=== PATIENT | male | born 1970 | race Caucasian/White ===

== ENCOUNTER 2020-10-06 21:01 | Emergency (ER) | payer OTHER ==
[2020-10-06 21:15] VITALS: BP 132/88; PULSE 75; TEMP 97.7; BMI 22.8
[2020-10-06] MEDS ORDERED: METHOCARBAMOL 500 MG TABLET PO ONE (21:35)
[2020-10-06] MEDS ORDERED: DIPHTH,PERTUSS(ACELL),TET 0.5 ML DISP.SYRIN IM ONE ×2 (21:36→21:43)
[2020-10-06] MEDS ORDERED: METHOCARBAMOL 500 MG TABLET ONE (21:42)
== END 2020-10-06 23:27 | disposition home or self-care (01) ==
LOC: JER 21:01
PROC: 3E0234Z Introduction of Serum, Toxoid and Vaccine into Muscle, Percutaneous Approach (ICD-10-PCS; principal; 2020-10-06)
DX: S16.1XXA Strain of muscle, fascia and tendon at neck level, initial encounter (principal); S46.819A Strain of other muscles, fascia and tendons at shoulder and upper arm level, unspecified arm, initial encounter
CPT/HCPCS: 70450-TC; 72125-TC; 90715; 93005; 93010; 99285-25

== ENCOUNTER 2023-05-03 18:55 | Emergency (ER) | payer OTHER ==
[2023-05-03 19:27] VITALS: BP 152/99; PULSE 87; RESP 18; TEMP 98; BMI 23.9
[2023-05-03] MEDS ORDERED: LIDOCAINE 1%/EPI 1:100000 (20 ML MULTI DOSE VIAL) INF ONE (20:47)
[2023-05-03] MEDS ORDERED: LIDOCAINE 1%/EPI 1:100000 (50 ML MULTI DOSE VIAL) ONE (20:52)
[2023-05-03] MEDS ORDERED: CEPHALEXIN MONOHYDRATE 500 MG CAPSULE (UD) PO ONE (21:33)
[2023-05-03] MEDS ORDERED: CEPHALEXIN MONOHYDRATE 500 MG CAPSULE (UD) ONE (21:44)
== END 2023-05-03 21:48 | disposition home or self-care (01) ==
LOC: JER 18:55
PROC: 0HQBXZZ Repair Right Upper Arm Skin, External Approach (ICD-10-PCS; principal; 2023-05-03)
DX: S41.111A Laceration without foreign body of right upper arm, initial encounter (principal); W00.0XXA Fall on same level due to ice and snow, initial encounter; W26.8XXA Contact with other sharp object(s), not elsewhere classified, initial encounter
CPT/HCPCS: 99283-25

== ENCOUNTER 2023-05-25 22:22 | Emergency (ER) | payer OTHER ==
[2023-05-25 22:31] VITALS: BP 140/94; PULSE 87; RESP 20; TEMP 97.4; BMI 24.3
[2023-05-26] MEDS ORDERED: MAG HYDROX/AL HYDROX/SIMETH 30 ML UNIT-DOSE CUP ONE (00:34)
[2023-05-26] MEDS ORDERED: ACETAMINOPHEN INJECTION 100 ML IVPB ONE (00:34)
[2023-05-26] MEDS ORDERED: FAMOTIDINE 20 MG/50 ML IVPB 20 MG/50 ML MG IVPB ONE (00:34)
[2023-05-26 00:38] LABS: EOS % 5.9 % (0-4.5); HEMATOCRIT 40.4 % (35.4-49); HEMOGLOBIN 13.9 GM/dL (11.7-16.9); LYMPH % 26.5 % (8-40); MCH 32.3 pg (25.7-33.7); MCHC 34.4 g/dl (32.0-35.9); MEAN CELL VOLUME 94.1 fl (80-96); MEAN PLT VOLUME 9.3 fl (7.5-11.1); MONO % 11.6 % (3.8-10.2); PLATELET COUNT 231 10^3/uL (134-434); RBC 4.29 M/mm3 (4.00-5.60); RDW 13.4 % (11.9-15.9); WHITE BLOOD COUNT 7.5 K/mm3 (4.0-10.0)
[2023-05-26 00:46] LABS: INR 0.96 (0.83-1.09); PROTHROMBIN TIME (PATIENT) 11.1 SEC (9.7-13.0)
[2023-05-26 00:49] LABS: ACTIVATED PTT 25.7 SECONDS (25.2-36.5)
[2023-05-26 00:54] LABS: POTASSIUM 3.4 mmol/L (3.5-5.1)
[2023-05-26 00:56] LABS: CALCIUM 9.1 mg/dL (8.5-10.1)
[2023-05-26 00:57] LABS: ALBUMIN 3.4 g/dl (3.4-5.0); BLOOD UREA NITROGEN 8.5 mg/dL (7-18)
[2023-05-26 00:59] LABS: CREATININE 0.9 mg/dL (0.55-1.3)
[2023-05-26 01:01] LABS: BILIRUBIN,TOTAL 0.3 mg/dL (0.2-1); TOT PROT 7.2 g/dl (6.4-8.2)
[2023-05-26] MEDS: MAG HYDROX/AL HYDROX/SIMETH 30 ML UNIT-DOSE CUP PO ONE (01:12)
[2023-05-26] MEDS: SODIUM CHLORIDE 0.9% 500 ML INFUS.BAG IV ONE (01:12)
[2023-05-26] MEDS: ACETAMINOPHEN 1000 MG/100 ML BAG IVPB ONE (01:13)
[2023-05-26] MEDS: FAMOTIDINE 20 MG/50 ML IVPB 20 MG/50 ML MG IVPB ONE (01:15)
[2023-05-26] MEDS ORDERED: POTASSIUM CHLORIDE TABS 20 MEQ TABLET.ER (FP) PO ONE (01:22)
[2023-05-26] MEDS: POTASSIUM CHLORIDE ORAL LIQUID 20 MEQ/15 ML PO ONE (01:26)
[2023-05-26] MEDS ORDERED: MAGNESIUM CITRATE 300 ML BOTTLE ONE (01:38)
[2023-05-26] MEDS: MAGNESIUM CITRATE 300 ML BOTTLE PO ONE (01:41)
== END 2023-05-26 02:21 | disposition home or self-care (01) ==
LOC: JER 22:22
PROC: 3E033GC Introduction of Other Therapeutic Substance into Peripheral Vein, Percutaneous Approach (ICD-10-PCS; principal; 2023-05-25)
PROC: 3E033GC Introduction of Other Therapeutic Substance into Peripheral Vein, Percutaneous Approach (ICD-10-PCS; 2023-05-25)
DX: R10.11 Right upper quadrant pain (principal); K76.0 Fatty (change of) liver, not elsewhere classified
CPT/HCPCS: 36415; 71046-TC-FY; 76705-TC; 80053; 80307; 83690; 84484; 85025; 85610; 85730; 93005; 93010; 99285-25; J0131

== ENCOUNTER 2023-06-05 18:57 | Inpatient (IN) | payer OTHER ==
[2023-06-05] MEDS ORDERED: FOLIC ACID 1 MG TABLET (FP) PO ONE (19:18)
[2023-06-05 19:45] LABS: BASO % 1.2 % (0-2.0); EOS % 2.7 % (0-4.5); HEMATOCRIT 19.8 % (35.4-49); LYMPH % 18.4 % (8-40); MCHC 34.1 g/dl (32.0-35.9); MEAN CELL VOLUME 96.8 fl (80-96); MEAN PLT VOLUME 10.7 fl (7.5-11.1); MONO % 7.5 % (3.8-10.2); NEUT % 70.2 % (42.8-82.8); PLATELET COUNT 169 10^3/uL (134-434); RBC 2.04 M/mm3 (4.00-5.60)
[2023-06-05 19:50] LABS: HEMOGLOBIN 6.7 GM/dL (11.7-16.9)
[2023-06-05] MEDS ORDERED: PANTOPRAZOLE SODIUM 40 MG VIAL ONE ×2 (19:52→20:54)
[2023-06-05] MEDS ORDERED: THIAMINE HCL 200 MG/2 ML VIAL ONE (19:52)
[2023-06-05] MEDS: LACTATED RINGERS SOLUTION 1000 ML INFUS.BAG IV ONE (20:01)
[2023-06-05] MEDS: PANTOPRAZOLE SODIUM 40 MG VIAL IVPUSH ONE (20:01)
[2023-06-05] MEDS: THIAMINE HCL 200 MG/2 ML VIAL IVPB ONE (20:01)
[2023-06-05 20:13] LABS: POTASSIUM 3.9 mmol/L (3.5-5.1)
[2023-06-05 20:16] LABS: ALBUMIN 3.1 g/dl (3.4-5.0); CALCIUM 8.1 mg/dL (8.5-10.1)
[2023-06-05 20:17] LABS: BLOOD UREA NITROGEN 23.6 mg/dL (7-18)
[2023-06-05 20:19] LABS: PHOSPHOROUS 2.2 mg/dL (2.5-4.9)
[2023-06-05 20:20] LABS: CREATININE 0.9 mg/dL (0.55-1.3)
[2023-06-05 20:21] LABS: BILIRUBIN,TOTAL 0.4 mg/dL (0.2-1); INR 1.02 (0.83-1.09); PROTHROMBIN TIME (PATIENT) 11.8 SEC (9.7-13.0); TOT PROT 5.8 g/dl (6.4-8.2)
[2023-06-05 20:23] LABS: ACTIVATED PTT 22.8 SECONDS (25.2-36.5)
[2023-06-05] MEDS ORDERED: POTASSIUM PHOSPHATE 30 MM in DEXTROSE 5%-WATER - 500 ML IVPB ONE (20:24)
[2023-06-05 20:54] LABS: LACTIC ACID 2.5 mmol/L (0.4-2.0)
[2023-06-05] MEDS ORDERED: ONDANSETRON 4 MG/2 ML VIAL ONE (20:54)
[2023-06-05 20:58] LABS: IRON SERUM 79 ug/dL (50-175)
[2023-06-05] MEDS: ONDANSETRON 4 MG/2 ML VIAL IVPUSH ONE (20:58)
[2023-06-05 20:59] LABS: TOTAL IRON BINDING CAPACITY 337 ug/dL (250-450)
[2023-06-05] MEDS: PANTOPRAZOLE SODIUM 80 MG in SODIUM CHLORIDE 100 ML IVPB SCH (21:12)
[2023-06-05] MEDS ORDERED: OCTREOTIDE ACETATE 100 MCG/1 ML ONE (21:14)
[2023-06-05 21:29] LABS: HEMATOCRIT 15.4 % (35.4-49); LYMPH % 23.7 % (8-40); MCH 32.7 pg (25.7-33.7); MCHC 33.5 g/dl (32.0-35.9); MEAN CELL VOLUME 97.6 fl (80-96); MEAN PLT VOLUME 9.9 fl (7.5-11.1); MONO % 8.1 % (3.8-10.2); NEUT % 65.2 % (42.8-82.8); PLATELET COUNT 144 10^3/uL (134-434); RBC 1.58 M/mm3 (4.00-5.60); RDW 13.2 % (11.9-15.9); WHITE BLOOD COUNT 7.9 K/mm3 (4.0-10.0)
[2023-06-05] MEDS: OCTREOTIDE ACETATE 50 MCG/1 ML - 1 ML VIAL IVPUSH ONE (21:31)
[2023-06-05 21:35] LABS: HEMOGLOBIN 5.2 GM/dL (11.7-16.9)
[2023-06-05] MEDS ORDERED: THIAMINE HCL 200 MG/2 ML VIAL IVPB SCH (21:45)
[2023-06-05] MEDS ORDERED: CEFTRIAXONE 1 GM in DEXTROSE 5%-WATER - 50 ML IVPB SCH (22:07)
[2023-06-05 22:14] LABS: POTASSIUM 3.7 mmol/L (3.5-5.1)
[2023-06-05 22:15] LABS: CALCIUM 7.6 mg/dL (8.5-10.1)
[2023-06-05 22:16] LABS: BLOOD UREA NITROGEN 23.6 mg/dL (7-18); MAGNESIUM 1.6 mg/dL (1.8-2.4)
[2023-06-05] MEDS: OCTREOTIDE ACETATE 200 MCG, OCTREOTIDE ACETATE 1,000 MCG in DEXTROSE 5%-WATER - 496 ML IVPB SCH (22:17)
[2023-06-05] MEDS: FOLIC ACID 5 MG/1 ML SQ ONE (22:17)
[2023-06-05 22:19] LABS: CREATININE 0.8 mg/dL (0.55-1.3)
[2023-06-05] MEDS: LACTATED RINGERS SOLUTION 1,000 ML/1,000 ML INFUS.BAG IV SCH (23:28)
[2023-06-05] MEDS: MAGNESIUM SULFATE IN WATER 2 GM/50 ML IVPB IVPB ONE (23:29)
[2023-06-06 00:19] LABS: BASO % 0.6 % (0-2.0); HEMATOCRIT 19.5 % (35.4-49); LYMPH % 29.7 % (8-40); MCH 31.3 pg (25.7-33.7); MCHC 33.3 g/dl (32.0-35.9); MEAN CELL VOLUME 93.9 fl (80-96); MEAN PLT VOLUME 10.1 fl (7.5-11.1); MONO % 7.4 % (3.8-10.2); NEUT % 60.3 % (42.8-82.8); PLATELET COUNT 120 10^3/uL (134-434); RBC 2.07 M/mm3 (4.00-5.60); RDW 14.4 % (11.9-15.9); WHITE BLOOD COUNT 11.6 K/mm3 (4.0-10.0)
[2023-06-06 00:23] LABS: HEMOGLOBIN 6.5 GM/dL (11.7-16.9)
[2023-06-06] MEDS: DEXMEDETOMIDINE PREMIX 400 MCG/100 ML BAG IVPB SCH (00:57)
[2023-06-06 01:24] LABS: LACTIC ACID 4.9 mmol/L (0.4-2.0)
[2023-06-06 02:11] LABS: URINE BARBITURATES NEGATIVE (NEGATIVE)
[2023-06-06 02:12] LABS: METHADONE, UR NEGATIVE (NEGATIVE); OPIATES, URI NEGATIVE (NEGATIVE); PHENCYCLIDINE,URINE NEGATIVE (NEGATIVE); URINE AMPHETAMINES NEGATIVE (NEGATIVE); URINE BENZODIAZEPINES NEGATIVE (NEGATIVE)
[2023-06-06] MEDS: THIAMINE HCL 200 MG/2 ML VIAL IVPB SCH (02:22)
[2023-06-06 02:36] LABS: COCAINE, UR POSITIVE (NEGATIVE)
[2023-06-06 06:11] LABS: HEMOGLOBIN 10.3 GM/dL (11.7-16.9); MCHC 34.3 g/dl (32.0-35.9); MEAN CELL VOLUME 90.4 fl (80-96); MEAN PLT VOLUME 11.6 fl (7.5-11.1); PLATELET COUNT 81 10^3/uL (134-434); RBC 3.32 M/mm3 (4.00-5.60); WHITE BLOOD COUNT 11.2 K/mm3 (4.0-10.0)
[2023-06-06 06:37] LABS: BASO % 0.5 % (0-2.0); EOS % 1.4 % (0-4.5); HEMATOCRIT 28.8 % (35.4-49); HEMOGLOBIN 10.1 GM/dL (11.7-16.9); LYMPH % 21.3 % (8-40); MCH 31.6 pg (25.7-33.7); MCHC 35.3 g/dl (32.0-35.9); MEAN CELL VOLUME 89.5 fl (80-96); MEAN PLT VOLUME 10.3 fl (7.5-11.1); MONO % 10.1 % (3.8-10.2); NEUT % 66.7 % (42.8-82.8); PLATELET COUNT 82 10^3/uL (134-434); RBC 3.21 M/mm3 (4.00-5.60); RDW 13.8 % (11.9-15.9)
[2023-06-06 06:53] LABS: INR 1.17 (0.83-1.09); PROTHROMBIN TIME (PATIENT) 13.5 SEC (9.7-13.0)
[2023-06-06 06:56] LABS: ACTIVATED PTT 23.1 SECONDS (25.2-36.5)
[2023-06-06] MEDS: INSULIN REGULAR HUMAN 100 UNITS/ML *VIAL IVPUSH ONE (07:00)
[2023-06-06] MEDS: CALCIUM GLUCONATE 10% - 1,000 MG/10 ML VIAL IVPB ONE (07:00)
[2023-06-06] MEDS: DEXTROSE 50%-WATER - 25 GM/50 ML VIAL IVPUSH ONE (07:00)
[2023-06-06 07:02] LABS: CHLORIDE 112 mmol/L (98-107); POTASSIUM 5.7 mmol/L (3.5-5.1); SODIUM 140 mmol/L (136-145)
[2023-06-06 07:08] LABS: ANION GAP 1 mmol/L (4-13); BLOOD UREA NITROGEN 24.3 mg/dL (7-18); CO2 27 mmol/L (21-32); GLUCOSE,RANDOM 138 mg/dL (74-106); MAGNESIUM 2.5 mg/dL (1.8-2.4)
[2023-06-06 07:11] LABS: CREATININE 0.9 mg/dL (0.55-1.3); PHOSPHOROUS 2.4 mg/dL (2.5-4.9); SGOT/AST 19 U/L (15-37); SGPT/ALT 22 U/L (13-61)
[2023-06-06] MEDS ORDERED: MIDAZOLAM HCL 2 MG/2 ML SINGLE DOSE VIAL ONE (07:12)
[2023-06-06 07:13] LABS: BILIRUBIN,TOTAL 0.4 mg/dL (0.2-1); TOT PROT 3.8 g/dl (6.4-8.2)
[2023-06-06 07:14] LABS: ALK PHOS 28 U/L (45-117)
[2023-06-06] MEDS ORDERED: DEXTROSE 50%-WATER 25 GM/50 ML DISP.SYRIN ONE (07:15)
[2023-06-06] MEDS ORDERED: ROCURONIUM BROMIDE 50 MG/5 ML SYRINGE ONE (07:16)
[2023-06-06] MEDS ORDERED: SUGAMMADEX SODIUM 200 MG/2 ML VIAL ONE (07:16)
[2023-06-06 07:27] LABS: ALBUMIN 2.2 g/dl (3.4-5.0); CALCIUM 6.8 mg/dL (8.5-10.1)
[2023-06-06] MEDS ORDERED: SODIUM CHLORIDE 500 ML IV STA (08:14)
[2023-06-06] MEDS ORDERED: CEFTRIAXONE 1 GM in DEXTROSE 5%-WATER - 50 ML IVPB SCH (10:00)
[2023-06-06] MEDS: PANTOPRAZOLE 40 MG TABLET PO SCH (10:31)
[2023-06-06 10:33] LABS: ANISOCYTOSIS 0; HELMET CELLS 0; HOWELL-JOLLY BODIES 0; MACROCYTOSIS 0; OVALOCYTE 0; ROULEAU 0; SICKELED CELLS 0; TARGET CELLS 0; TEAR DROP CELLS 0; TOXIC GRANULATION 0
[2023-06-06 13:09] VITALS: BMI 21.5
[2023-06-06 15:53] LABS: POTASSIUM 4.2 mmol/L (3.5-5.1)
[2023-06-06 15:56] LABS: CALCIUM 7.4 mg/dL (8.5-10.1)
[2023-06-06 15:57] LABS: BLOOD UREA NITROGEN 20.5 mg/dL (7-18)
[2023-06-06 15:59] LABS: CREATININE 0.9 mg/dL (0.55-1.3)
[2023-06-06 20:36] LABS: HEMOGLOBIN 8.5 GM/dL (11.7-16.9); MCH 30.7 pg (25.7-33.7); MCHC 33.9 g/dl (32.0-35.9); MEAN CELL VOLUME 90.3 fl (80-96); MEAN PLT VOLUME 10.9 fl (7.5-11.1); PLATELET COUNT 84 10^3/uL (134-434); RBC 2.77 M/mm3 (4.00-5.60); RDW 14.5 % (11.9-15.9)
[2023-06-06] MEDS: CHLORHEXIDINE GLUCONATE 4% CLEANSER FOR DECOLONIZATION TP SCH (21:16)
[2023-06-06] MEDS: MUPIROCIN 2% TOPICAL OINTMENT FOR DECOLONIZATION NS SCH (23:35)
[2023-06-07 07:01] LABS: BASO % 0.5 % (0-2.0); EOS % 9.2 % (0-4.5); HEMATOCRIT 23.2 % (35.4-49); HEMOGLOBIN 8.3 GM/dL (11.7-16.9); LYMPH % 13.3 % (8-40); MCH 31.9 pg (25.7-33.7); MCHC 35.7 g/dl (32.0-35.9); MEAN CELL VOLUME 89.4 fl (80-96); MEAN PLT VOLUME 10.9 fl (7.5-11.1); MONO % 6.9 % (3.8-10.2); NEUT % 70.1 % (42.8-82.8); PLATELET COUNT 88 10^3/uL (134-434); RDW 14.5 % (11.9-15.9); WHITE BLOOD COUNT 10.1 K/mm3 (4.0-10.0)
[2023-06-07 07:13] LABS: POTASSIUM 3.8 mmol/L (3.5-5.1)
[2023-06-07 07:17] LABS: ALBUMIN 2.4 g/dl (3.4-5.0)
[2023-06-07 07:19] LABS: BLOOD UREA NITROGEN 13.9 mg/dL (7-18); CALCIUM 7.6 mg/dL (8.5-10.1); MAGNESIUM 1.8 mg/dL (1.8-2.4)
[2023-06-07 07:23] LABS: CREATININE 0.8 mg/dL (0.55-1.3); PHOSPHOROUS 2.4 mg/dL (2.5-4.9); TOT PROT 4.3 g/dl (6.4-8.2)
[2023-06-07 07:24] LABS: BILIRUBIN,TOTAL 0.4 mg/dL (0.2-1)
[2023-06-07] MEDS: NAPH,MB-DB/K PH,MBDB POWDER PACKET PO ONE (11:04)
[2023-06-07] MEDS ORDERED: LORazepam 1 MG TABLET PO PRN (13:14)
[2023-06-07] MEDS: THIAMINE HCL 200 MG/2 ML VIAL IVPB SCH (18:02)
[2023-06-07] MEDS: PANTOPRAZOLE 40 MG TABLET PO SCH (22:16)
[2023-06-08] MEDS: ACETAMINOPHEN 1000 MG/100 ML BAG IVPB ONE (00:37)
[2023-06-08] MEDS ORDERED: SODIUM CHLORIDE 500 ML IV STA (07:44)
[2023-06-08 09:22] VITALS: BP 102/65; PULSE 68; RESP 20; TEMP 97.8
[2023-06-08 09:51] LABS: HEMATOCRIT 24.6 % (35.4-49); HEMOGLOBIN 8.7 GM/dL (11.7-16.9); MCH 32.7 pg (25.7-33.7); MCHC 35.5 g/dl (32.0-35.9); MEAN CELL VOLUME 92.1 fl (80-96); MEAN PLT VOLUME 10.2 fl (7.5-11.1); PLATELET COUNT 112 10^3/uL (134-434); RBC 2.67 M/mm3 (4.00-5.60); WHITE BLOOD COUNT 5.8 K/mm3 (4.0-10.0)
[2023-06-08 10:05] LABS: POTASSIUM 3.8 mmol/L (3.5-5.1)
[2023-06-08 10:14] LABS: BLOOD UREA NITROGEN 10.2 mg/dL (7-18)
[2023-06-08 10:15] LABS: ALBUMIN 2.5 g/dl (3.4-5.0); CALCIUM 7.8 mg/dL (8.5-10.1)
[2023-06-08 10:16] LABS: BILIRUBIN,TOTAL 0.4 mg/dL (0.2-1); MAGNESIUM 2.1 mg/dL (1.8-2.4)
[2023-06-08 10:17] LABS: PHOSPHOROUS 3.6 mg/dL (2.5-4.9); TOT PROT 4.8 g/dl (6.4-8.2)
[2023-06-08] MEDS: LIDOCAINE 4% PATCH TP SCH (12:12)
[2023-06-08] MEDS ORDERED: LIDOCAINE PATCH REMOVAL MC SCH (22:00)
== END 2023-06-08 13:24 | disposition home or self-care (01) | DRG 811 ==
LOC: JER 18:57 → JERBED 21:24 → JICU 22:07 → J5S 06-07 16:33
PROVIDERS: ADMIT Internal Medicine Pulmonary Disease; ATTEND Internal Medicine
PROC: 0DB68ZX Excision of Stomach, Via Natural or Artificial Opening Endoscopic, Diagnostic (ICD-10-PCS; 2023-06-06)
PROC: 30233N1 Transfusion of Nonautologous Red Blood Cells into Peripheral Vein, Percutaneous Approach (ICD-10-PCS; 2023-06-06)
PROC: 0DB98ZX Excision of Duodenum, Via Natural or Artificial Opening Endoscopic, Diagnostic (ICD-10-PCS; principal; 2023-06-06 07:05)
DX: D62 Acute posthemorrhagic anemia (principal); K26.4 Chronic or unspecified duodenal ulcer with hemorrhage; F14.10 Cocaine abuse, uncomplicated; F12.10 Cannabis abuse, uncomplicated; Z85.72 Personal history of non-Hodgkin lymphomas; F19.10 Other psychoactive substance abuse, uncomplicated; K70.0 Alcoholic fatty liver; F10.20 Alcohol dependence, uncomplicated
CPT/HCPCS: 0241U-QW; 36415; 36430; 71045-TC-FY; 80048; 80053; 80307; 82140; 82272; 82962; 83540; 83550; 83605; 83735; 84100; 84484; 85025; 85027; 85610; 85730; 86900; 86922; 88305-TC; 93005; 93010; 97116-GP; 97161-GP; 99285-25; J0131; P9058